=== PATIENT | male | born 1960 | race Caucasian/White ===

== ENCOUNTER 2017-05-18 10:14 | Emergency (ER) | END 2017-05-18 13:40 | disposition home or self-care (01) ==

== ENCOUNTER 2017-10-20 00:47 | Emergency (ER) | END 2017-10-20 03:30 | disposition home or self-care (01) ==

== ENCOUNTER 2017-10-21 14:39 | Emergency (ER) | END 2017-10-21 17:18 | disposition left against medical advice (07) ==

== ENCOUNTER → 2017-10-28 | Outpatient (CLI) | END | disposition home or self-care (01) ==